=== PATIENT | male | born 1955 | race Caucasian/White ===

== ENCOUNTER 2022-03-14 16:42 | Inpatient (IN) | payer MEDICARE, OTHER ==
[~2022-03-14] VITALS: Ht 190.5 cm; Wt 93.9 kg
--- NOTE | 2022-03-14 16:54 | NUR ---
[facility] C/O PACING, NOT TAKING MEDS, REFUSING TO EAT & DRINK x COUPLE OF DAYS. TO ER BED 14, HOOKED TO MONITOR, CHANGED TO HOSP GOWN, WARM BLANKET PROVIDED. AWAITING MD ESPAÑA
--- NOTE | 2022-03-14 17:27 | NUR ---
HUMBLE BALL: [phone] FOR FIELD SEISMOLOGIST: WALTER DAWIT: [phone]
--- NOTE | 2022-03-14 17:35 | NUR ---
DR MARY AT BEDSIDE
[2022-03-14] MEDS ORDERED: IV NS 0.9% 1,000 ML IV ONE (18:00)
--- NOTE | 2022-03-14 18:23 | NUR ---
BLOOD COLLECTED AND SENT TO LAB
[2022-03-14 18:24] LABS: BASOPHILS % (AUTO) 0.4 % (0.0-2.0); EOSINOPHILS % (AUTO) 0.2 % (0.0-6.0); HEMATOCRIT 44 % (39-51); HEMOGLOBIN 14.8 g/dL (13.5-17.5); LYMPHOCYTES # (AUTO) 0.9 K/uL (0.8-4.8); LYMPHOCYTES % (AUTO) 11.6 % (20.0-44.0); MEAN CORPUSCULAR HGB CONC 34 g/dl (31.0-36.0); MEAN CORPUSCULAR VOLUME 81 fL (80-96); MONOCYTES # (AUTO) 0.8 K/uL (0.1-1.30); MONOCYTES % (AUTO) 9.7 % (2.0-12.0); NEUTROPHILS # (AUTO) 6.3 K/uL (1.8-8.9); NEUTROPHILS % (AUTO) 78.1 % (43.0-81.0); PLATELET COUNT (AUTO) 162 K/uL (150-450); RED BLOOD CELL COUNT(AUTO) 5.35 MIL/uL (4.5-6.0); WHITE BLOOD COUNT (AUTO) 8.1 K/uL (4.3-11.0)
[2022-03-14 18:47] LABS: ALANINE AMINOTRANSFERASE 46 U/L (12-78); ALBUMIN 3.7 g/dL (3.4-5.0); ALKALINE PHOSPHATASE 131 U/L (46-116); ASPARTATE AMINOTRANSFERASE 60 U/L (15-37); BILIRUBIN,DIRECT 0.5 mg/dL (0.0-0.2); BILIRUBIN,TOTAL 1.2 mg/dL (0.2-1.0); CALCIUM, SERUM 9.1 mg/dL (8.5-10.1); CARBON DIOXIDE 18 mmol/L (21-32); CHLORIDE 105 mmol/L (98-107); CREATININE 1.8 mg/dL (0.6-1.3); GLUCOSE 89 mg/dL (74-106); POTASSIUM 3.5 mmol/L (3.5-5.1); SODIUM SERUM 140 mmol/L (136-145); TOTAL PROTEIN, SERUM 7.1 g/dL (6.4-8.2); UREA NITROGEN, BLOOD 37 mg/dL (7-18)
[2022-03-14 18:49] LABS: ACETAMINOPHEN 0 ug/ml (10-30)
[2022-03-14 18:50] LABS: ALCOHOL, BLOOD < 3 mg/dL (0-0)
--- NOTE | 2022-03-14 19:11 | NUR ---
EDE AT BEDSIDE.
--- NOTE | 2022-03-14 19:17 | NUR ---
COVID SWAB COLLECTED AND SENT TO LAB
[2022-03-14 21:09] LABS: BILIRUBIN,URINE NEGATIVE (NEGATIVE); COLOR,URINE YELLOW (YELLOW); LEUKOCYTE ESTERASE ,URINE NEGATIVE (NEGATIVE); NITRITE, URINE NEGATIVE (NEGATIVE); PROTEIN,URINE NEGATIVE (NEGATIVE); UGLUCOSE NEGATIVE (NEGATIVE); UROBILINOGEN,URINE 0.2 EU/dL (0.2)
--- NOTE | 2022-03-14 22:37 | NUR ---
REPORT GIVEN TO LUCY
--- NOTE | 2022-03-14 22:43 | NUR ---
PATIENT TRANSFERRED VSS
[2022-03-14 22:48] VITALS: BP 154/86
--- NOTE | 2022-03-14 22:48 | NUR ---
MS RN ADMITTING NOTES PT ARRIVED TO VIA GURNEY BY ER STAFF, ABLE TO WALK TO BED. A/O X4, ABLE TO MAKE NEEDS KNOWN. STABLE ON RA WITH NO S/S OF RESPIRATORY DISTRESS. DENIES PAIN AT THIS TIME. VS: 154/86 BP, 75 HR, 20 RR, 98.6 F, 98% O2, 207 LB. PT ABLE TO ANSWER ADMISSION QUESTIONS. STATES TO HAVE SUICIDAL THOUGHTS AT TIMES BUT NOT AT THE MOMENT. FOR PSYCH CONSULT. SKIN ASSESSMENT PERFORMED AND DOCUMENTED IN CHART: SKIN INTACT, NOTED WITH SOME SCABS AND TOE REDNESS/SWELLING. IV ACCESS LAC #20G SL, PATENT AND INTACT. ORIENTED TO UNIT AND HOW TO USE CALL LIGHT. REFUSES ANY WATER OR SNACKS AT THIS TIME. SAFETY PRECAUTIONS PUT IN PLACE: BED LOCKED AND IN LOW POSITION, SIDE RAILS UP X2, CALL LIGHT AND TRAY TABLE WITHIN REACH. WILL CONTINUE TO MONITOR AND ASSIST.
[2022-03-14] MEDS ORDERED: ACETAMINOPHEN 325 MG TABLET PO PRN (23:00)
[2022-03-14] MEDS ORDERED: ONDANSETRON HCL/PF 4 MG/2 ML VIAL IVP PRN (23:00)
[2022-03-14] MEDS ORDERED: MAGNESIUM HYDROXIDE 30 ML UDC PO PRN (23:00)
[2022-03-14] MEDS ORDERED: IV NS 0.9% 1,000 ML IV PRN (23:00)
[2022-03-14] MEDS ORDERED: Z GUARD REMEDY 4 OZ OINT TP PRN (23:00)
[2022-03-14] MEDS ORDERED: ZOLPIDEM TARTRATE 5 MG TABLET PO PRN (23:00)
[2022-03-14] MEDS ORDERED: MAG HYDROX/AL HYDROX/SIMETH 30 ML UDC PO PRN (23:00)
[2022-03-15 05:49] LABS: BASOPHILS % (AUTO) 0.4 % (0.0-2.0); EOSINOPHILS % (AUTO) 0.9 % (0.0-6.0); HEMATOCRIT 42 % (39-51); HEMOGLOBIN 13.9 g/dL (13.5-17.5); LYMPHOCYTES # (AUTO) 1.3 K/uL (0.8-4.8); LYMPHOCYTES % (AUTO) 21.8 % (20.0-44.0); MEAN CORPUSCULAR HGB CONC 33 g/dl (31.0-36.0); MEAN CORPUSCULAR VOLUME 84 fL (80-96); MONOCYTES # (AUTO) 0.9 K/uL (0.1-1.30); MONOCYTES % (AUTO) 14.5 % (2.0-12.0); NEUTROPHILS # (AUTO) 3.8 K/uL (1.8-8.9); NEUTROPHILS % (AUTO) 62.4 % (43.0-81.0); PLATELET COUNT (AUTO) 119 K/uL (150-450); RED BLOOD CELL COUNT(AUTO) 5.04 MIL/uL (4.5-6.0)
[2022-03-15 06:10] LABS: CALCIUM, SERUM 8.3 mg/dL (8.5-10.1); CREATININE 1.2 mg/dL (0.6-1.3); MAGNESIUM 2.5 mg/dL (1.8-2.4); PHOSPHORUS 2.8 mg/dL (2.5-4.9); POTASSIUM 3.2 mmol/L (3.5-5.1)
[2022-03-15 06:11] LABS: THYROID STIMULATING HORMONE 1.053 uIU/mL (0.358-3.74)
--- NOTE | 2022-03-15 07:08 | NUR ---
MS RN OPENING NOTES RECEIVED PATIENT SLEEPING IN BED, A/Ox4, ABLE TO MAKE NEEDS KNOWN. ON ROOM AIR. NO S/S OF RESPIRATORY DISTRESS OR DISCOMFORT. PATIENT IV ACCESS L AC #20G RUNNING NS @75ML/HR. INTACT AND PATENT. NO S/S OF INFILTRATION. PATIENT AMBULATORY, HAS BATHROOM PRIVILEGE. SKIN INTACT. SAFETY MEASURES IN PLACE: BED LOCKED AND IN LOWEST POSITION, SIDE RAILS UP x2, HOB ELEVATED, CALL LIGHT WITHIN REACH. WILL CONTINUE TO MONITOR.
--- NOTE | 2022-03-15 07:33 | NUR ---
MS RN CLOSING NOTES PT IN BED SLEEPING AT THIS TIME. A/O X4, ABLE TO MAKE NEEDS KNOWN. STABLE ON RA WITH NO S/S OF RESPIRATORY DISTRESS. DENIES PAIN AT THIS TIME. IV ACCESS LAC #20G SL, PATENT AND INTACT, RUNNING 0.9% NS @ 75 ML/HR. ALL CARE PROVIDED. SAFETY PRECAUTIONS MAINTAINED: BED LOCKED AND IN LOW POSITION, SIDE RAILS UP X2, CALL LIGHT AND TRAY TABLE WITHIN REACH. WILL ENDORSE JAMIR TO DAY SHIFT NURSE.
[2022-03-15 08:00] VITALS: BP 107/61
[2022-03-15] MEDS ORDERED: ALLO100T PO (08:12)
[2022-03-15] MEDS ORDERED: ALBU8.5H8 IH (08:12)
[2022-03-15] MEDS ORDERED: BENZ1TAB7 PO (08:12)
[2022-03-15] MEDS ORDERED: BUPR-319 PO (08:12)
[2022-03-15] MEDS ORDERED: AMLO-213 PO (08:12)
[2022-03-15] MEDS ORDERED: TRAZ150T75 PO (08:12)
[2022-03-15] MEDS ORDERED: CHLO473M2 MM (08:12)
[2022-03-15] MEDS ORDERED: ARIP5TAB59 PO (08:12)
[2022-03-15] MEDS ORDERED: CHOL100043 PO (08:12)
[2022-03-15] MEDS ORDERED: ATOR40TA PO (08:12)
[2022-03-15] MEDS: BENZTROPINE MESYLATE (1 MG) 1 MG TABLET PO SCH ×2 (09:00→16:02)
--- NOTE | 2022-03-15 09:15 | NUR ---
RN NOTES PATIENT TOLD ABOUT HIS MEDICATION, NODDED WHEN TOLD WHAT THE MEDICATION WAS. CUT THE MEDICATION BENZTROPINE FOR ORDERED DOSE 0.5 MG. WHEN GIVEN TO PATIENT TO TAKE PATIENT BEGAN TO SHAKE HIS HEAD AND WHEN ASKED IF HE WANTED TO TAKE THE PILL SHOOK HIS HEAD NO. LEFT PATIENT, ATTEMPTED TO TRY AGAIN TO GIVE PATIENT THE MEDICATION BUT WAS GIVEN A HEAD SHAKE NO AGAIN. MEDICATION WASTED IN THE RX DESTROYER.
[2022-03-15] MEDS ORDERED: POTASSIUM CHLORIDE 20 MEQ TAB.PRT.SR PO SCH (10:30)
--- NOTE | 2022-03-15 10:31 | NUR ---
RN NOTES ASKED PATIENT IF HE WOULD TAKE HIS POTASSIUM SUPPLEMENTS, HE NODDED. GOT MEDICATION, PATIENT TOOK PILLS WHOLE AND SPOKE SOFTLY SAYING YES IF HE WANTED FOOD. CHOCOLATE PUDDING GIVEN, WILL CONTINUE TO MONITOR.
--- NOTE | 2022-03-15 11:00 | NUR ---
RN NOTES PATIENT SEEN BY DR. EVITA MD RECOMMEND TRANSFER TO [facility] WILL AWAIT NEW ORDERS.
--- NOTE | 2022-03-15 14:59 | NUR ---
RN NOTES CRISIS TEAM SAW PATIENT, PENDING TRANSFER TO [facility] BED 220A.
[2022-03-15 16:00] VITALS: BP 140/75
[2022-03-15] MEDS ORDERED: ZOLP5TAB8 PO (17:13)
[2022-03-15] MEDS ORDERED: ALLA266C2 TP (17:13)
[2022-03-15] MEDS ORDERED: MAGN400O6 PO (17:13)
[2022-03-15] MEDS ORDERED: MAG30ORA PO (17:13)
[2022-03-15] MEDS ORDERED: ACET-868 PO (17:13)
--- NOTE | 2022-03-15 17:59 | NUR ---
PLASTER AND STUCCO WORKER NOTES PATIENT BEING D/C TO [facility] UNIT. STABLE, A/Ox4 ABLE TO MAKE NEEDS KNOWN. STABLE ON ROOM AIR, NO S/S OF RESPIRATORY DISTRESS. PATIENT AMBULATORY, ABLE TO GO TO THE BATHROOM. CONTINENT. SKIN INTACT, L TOE REDNESS NOTED. IV ACCESS REMOVED, PRESSURE DRESSING APPLIED, NO BLEEDING NOTED. ID BAND REMOVED. LEFT UNIT @1650, ACCOMPANIED BY LUI DUBON AND MIKE STEELE VIA WHEELCHAIR. REPORT GIVEN TO MIKE BOWIE. CHARGE NURSE AND MD AWARE OF DISCHARGE.
== END 2022-03-15 16:49 | DRG 640 ==
LOC: ER 16:51 → EDBD 16:51 → MED 21:59
PROVIDERS: ADMIT Nurse Practitioner Acute Care; ATTEND Nurse Practitioner Family
DX: R62.7 Adult failure to thrive (principal); G93.41 Metabolic encephalopathy; N17.0 Acute kidney failure with tubular necrosis; F32.A Depression, unspecified; Z79.51 Long term (current) use of inhaled steroids; Z79.899 Other long term (current) drug therapy; Z87.891 Personal history of nicotine dependence; E87.6 Hypokalemia; E83.41 Hypermagnesemia; F25.1 Schizoaffective disorder, depressive type; F29 Unspecified psychosis not due to a substance or known physiological condition; R41.9 Unspecified symptoms and signs involving cognitive functions and awareness; F94.0 Selective mutism; G24.01 Drug induced subacute dyskinesia
CPT/HCPCS: 36415; 70450-TC; 71045-TC; 80048-TC; 80061-TC; 80076-TC; 83735-TC; 84100-TC; 84443-TC; 85025-TC; 87081-TC; 97112-TC; 97116-TC; 97530-TC; C9803; G0378; G0480; J7030

== ENCOUNTER 2022-03-15 16:56 | Inpatient (IN) | payer MEDICARE, OTHER ==
[~2022-03-15] VITALS: Ht 190.5 cm; Wt 95.3 kg
[~2022-03-15 16:56] MED LIST: ALBU8.5H8 IH; ALLO100T PO; AMLO-213 PO; ARIP5TAB59 PO; ATOR40TA PO; BENZ1TAB7 PO; BUPR-319 PO; CHLO473M2 MM; CHOL100043 PO; TRAZ150T75 PO
[2022-03-15] MEDS ORDERED: ZOLP5TAB8 PO (17:13)
[2022-03-15] MEDS ORDERED: MAGN400O6 PO (17:13)
[2022-03-15] MEDS ORDERED: ALLA266C2 TP (17:13)
[2022-03-15] MEDS ORDERED: MAG30ORA PO (17:13)
[2022-03-15] MEDS ORDERED: ACET-868 PO (17:13)
[2022-03-15] MEDS ORDERED: MAGNESIUM HYDROXIDE 30 ML UDC PO PRN ×2 (17:30→19:30)
[2022-03-15] MEDS ORDERED: TEMAZEPAM 7.5 MG CAPSULE PO PRN (17:30)
[2022-03-15] MEDS ORDERED: MAG HYDROX/AL HYDROX/SIMETH 30 ML UDC PO PRN ×2 (17:30→19:30)
[2022-03-15] MEDS ORDERED: ACETAMINOPHEN 325 MG TABLET PO PRN ×2 (17:30→19:30)
--- NOTE | 2022-03-15 18:30 | NUR ---
RN-CO: Admitted a 66 year old male from medical floor. He was placed on a 72 hour hold for being a Gravely Disabled Adult. Dr Ward gave the admitting orders while Dr Bowling was notified to reconcile his medications. Upon face to face interview with the patient , I had a hard time asking him questions because he refused to talk, however the RN from MS said he is alert and oriented x 3-4. His affect is blunted,he is on " position" he nods when he want to answer questions but he ignored most of the questions asked. He nodded when I asked him if he feels suicidal but did not response when I asked him if he has plan to commit suicide. Per report from the RN he feels hopeless because he does not have support system. I placed him to the room closest to the nursing station for close observation. He refused MRSA test and body check , I took most of the information from the primary nurse in the medical floor. Patient's rights booklet was given to him and I encouraged him to call for assistance and to ventilate his feelings.
[2022-03-15] MEDS ORDERED: ALBUTEROL FS 2.5 MG/0.5 ML VIAL.NEB NEB PRN (19:30)
[2022-03-15] MEDS: CHLORHEXIDINE GLUCONATE 15 ML UDC MM SCH (20:27)
[2022-03-15 21:17] VITALS: BP 110/60
[2022-03-16 08:00] VITALS: BP 110/59
[2022-03-16] MEDS: AMLODIPINE BESYLATE 10 MG TABLET PO SCH (08:46)
[2022-03-16] MEDS: CHLORHEXIDINE GLUCONATE 15 ML UDC MM SCH ×2 (08:46→21:00)
[2022-03-16] MEDS: ALLOPURINOL 100 MG TABLET PO SCH (08:46)
[2022-03-16 09:09] LABS: ALBUMIN 2.8 g/dL (3.4-5.0); BILIRUBIN,TOTAL 0.7 mg/dL (0.2-1.0); CALCIUM, SERUM 8.2 mg/dL (8.5-10.1); CREATININE 1.2 mg/dL (0.6-1.3); POTASSIUM 3.4 mmol/L (3.5-5.1); TOTAL PROTEIN, SERUM 5.7 g/dL (6.4-8.2)
[2022-03-16] MEDS ORDERED: POTASSIUM CHLORIDE 20 MEQ TAB.PRT.SR PO ONE (12:30)
[2022-03-16] MEDS: ARIPIPRAZOLE 5 MG TABLET PO SCH ×2 (12:34→18:39)
--- NOTE | 2022-03-16 14:22 | NUR ---
LÓPEZ Clinical Note: Pt placed on a 5150 hold for GD. Pt was brought to the hospital due to failure to thrive. Pt currently resides at a independent living located at [address] [place] [address]; ([phone]). Pt does not have any supportive contact at this time. LÓPEZ will contact [facility] van owner operator Mary ([phone]) to see if pt is welcomed back.
--- NOTE | 2022-03-16 14:22 | NUR ---
LÓPEZ Initial Discharge Note: Pt currently resides at a independent living located at [address] [place] [address]; ([phone]). Pt does not have any supportive contact at this time. LÓPEZ will contact [facility] owner operator Mary ([phone]) to see if pt is welcomed back. LÓPEZ will work with the MD and pt to help coordinate appropriate discharge.
--- NOTE | 2022-03-16 14:22 | NUR ---
Treatment Plan: Pt refused to sign treatment plan and walked away from this telegraphic typewriter repairer.
--- NOTE | 2022-03-16 14:24 | NUR ---
Facility Contact: SW contacted Mary ([phone]) landlord to discuss if pt is welcomed back or not. Mary stated that pt has been with them for the past 7 years. She shared that pt has these episodes of depression and usually it happens during October - January but occurred early on this year. She expressed that pt is welcomed back upon discharge, however, doctor recommends possible nursing facility.
[2022-03-16 16:00] VITALS: BP 126/72
[2022-03-16] MEDS: ATORVASTATIN 40 MG TABLET PO SCH (18:39)
[2022-03-16 19:46] VITALS: BP 101/63
--- NOTE | 2022-03-16 21:29 | NUR ---
RN NOTE PATIENT REFUSED SCHEDULED CHLORHEXIDINE 15ML PO FOR TONIGHT. EXPLAINED RISKS/BENEFITS. PT CONTINUED TO REFUSE.
--- NOTE | 2022-03-17 07:31 | NUR ---
[facility] RN OPENING NOTE RECEIVED PT AWAKE AND PACING AROUND THE UNIT. PT IS A/O X2-3, SELECTIVE MUTE. NO AGGRESSIVE BEHAVIOR NOTED. PT IS ON ROOM AIR, TOLERATING WELL. NO SOB NOTED. NOT IN ANY SIGN OF RESPIRATORY DISTRESS. SAFETY MEASURES IN PLACE IN HIS ROOM: BED IN LOWEST AND LOCKED POSITION, SIDE RAILS UPX2, BED ALARM ON, AND CALL LIGHT WITHIN REACH. WILL CONTINUE TO MONITOR THIS PATIENT Q15 MINUTES WITH THE HELP OF STAFF TO MAINTAIN SAFETY.
[2022-03-17 08:00] VITALS: BP 116/85
[2022-03-17] MEDS: ARIPIPRAZOLE 5 MG TABLET PO SCH ×3 (08:32→17:11)
[2022-03-17] MEDS: AMLODIPINE BESYLATE 10 MG TABLET PO SCH (08:32)
[2022-03-17] MEDS: ALLOPURINOL 100 MG TABLET PO SCH (08:32)
[2022-03-17] MEDS: CHLORHEXIDINE GLUCONATE 15 ML UDC MM SCH ×2 (08:32→21:31)
--- NOTE | 2022-03-17 10:16 | NUR ---
LÓPEZ Note: SW received a call from pt's manager of case management Dinora ([phone]) who wanted updates on pt to share with his outpatient doctor.
[2022-03-17] MEDS: LORAZEPAM 0.5 MG TABLET PO PRN (11:47)
--- NOTE | 2022-03-17 11:57 | NUR ---
[facility] RN NOTE PT NOTED WITH EPISODES OF ANXIOUSNESS AND PACING BACK AND FORTH IN THE UNIT SINCE MORNING. OFFERED ATIVAN 0.5MG PO ORDERED PRN Q6HRS TO HELP WITH ANXIETY BUT PT REFUSED. EXPLAINED RISK AND BENEFITS, STILL REFUSED. ATIVAN NOT ADMINISTERED AND WAS WASTED. WASTED WAS WITNESSED BY MIKE CHILD CHARGED NURSE.
[2022-03-17 16:00] VITALS: BP 135/54
[2022-03-17] MEDS: ATORVASTATIN 40 MG TABLET PO SCH ×2 (17:11→17:16)
--- NOTE | 2022-03-17 17:19 | NUR ---
[facility]PS RN NOTE PT REFUSED HIS ABILIFY MEDICATION SCHEDULED AT 1700 AND LIPITOR MEDICATION SCHEDULED AT 1800. PT AGREED TO TAKE MEDICATIONS AT FIRST BUT WHEN ABOUT TO GIVE MEDICATIONS, PT REFUSED. EXPLAINED THE RISK AND BENEFITSX3, PT STILL REFUSED.
[2022-03-18 08:00] VITALS: BP 154/72
[2022-03-18] MEDS: CHLORHEXIDINE GLUCONATE 15 ML UDC MM SCH ×2 (08:13→21:20)
[2022-03-18] MEDS: ARIPIPRAZOLE 5 MG TABLET PO SCH ×2 (08:13→16:19)
[2022-03-18] MEDS: ALLOPURINOL 100 MG TABLET PO SCH (08:14)
[2022-03-18] MEDS: AMLODIPINE BESYLATE 10 MG TABLET PO SCH (08:14)
--- NOTE | 2022-03-18 08:14 | NUR ---
SNF Referral: SW sent clinicals to [facility] to Faviola jones ([phone]) for placement. SW sent H & P, progress notes, and medication list.
--- NOTE | 2022-03-18 10:01 | NUR ---
SNF Contact: SW received a call from [facility] to Faviola jones ([phone]) who stated pt is accepted.
[2022-03-18] MEDS: DIVALPROEX SODIUM 125 MG CAP.SPRINK PO SCH ×2 (13:18→16:19)
[2022-03-18 16:00] VITALS: BP 115/88
[2022-03-18] MEDS: ATORVASTATIN 40 MG TABLET PO SCH (17:00)
--- NOTE | 2022-03-18 19:51 | NUR ---
RN NOTES: PATIENT SLEEP IN BED COMFORTABLY, AROUSABLE TO VERBAL STIMULI, BED IN LOW POSITION CALL LIGHTS WITHIN REACH, NO COMPLAIN OF PAIN AND DISCOMFORT AT THIS TIME, ON ROOM AIR SATURATING, NO BEHAVIORAL, PATIENT KEPT CLEAN AND DRY ALL NEEDS MET, WILL CONTINUE TO MONITOR.
[2022-03-18 20:00] VITALS: BP 104/60
[2022-03-19] MEDS: LORAZEPAM 0.5 MG TABLET PO PRN (08:16)
--- NOTE | 2022-03-19 08:18 | NUR ---
RN-NOTES NOTED PATIENT PACING IN THE HALLWAY,GUARDED FOCUS ON LEAVING TODAY. REDIRECTED AND ATIVAN 0.5MG P.O GIVEN PRN ORDER. WILL CONT. MONITORING FOR SAFETY AND BEHAVIOR.
[2022-03-19] MEDS: DIVALPROEX SODIUM 125 MG CAP.SPRINK PO SCH ×3 (08:42→16:29)
[2022-03-19] MEDS: CHLORHEXIDINE GLUCONATE 15 ML UDC MM SCH ×2 (08:42→21:17)
[2022-03-19] MEDS: ARIPIPRAZOLE 5 MG TABLET PO SCH ×2 (08:43→16:29)
[2022-03-19] MEDS: ALLOPURINOL 100 MG TABLET PO SCH (08:43)
[2022-03-19] MEDS: AMLODIPINE BESYLATE 10 MG TABLET PO SCH (09:00)
--- NOTE | 2022-03-19 09:20 | NUR ---
RN-NOTES PATIENT IN THE ROOM SITTING IN BED CALM,NO ACUTE DISTRESS NOTED.
--- NOTE | 2022-03-19 09:50 | NUR ---
Court Notification: Pt does not have any supportive contact to notify of 5250 hearing.
--- NOTE | 2022-03-19 09:50 | NUR ---
Court Notification: Pt's court for 5250 was today and it was upheld for GD.
[2022-03-19 10:01] VITALS: BP 100/70
[2022-03-19 12:30] LABS: CREATININE 1.6 mg/dL (0.6-1.3); POTASSIUM 3.7 mmol/L (3.5-5.1)
[2022-03-19 16:00] VITALS: BP 124/69
[2022-03-19] MEDS: ATORVASTATIN 40 MG TABLET PO SCH (17:05)
--- NOTE | 2022-03-19 17:28 | NUR ---
RN-NOTES PATIENT VISIBLE IN THE UNIT PACING ON AND OFF,GUARDED, NO ACUTE DISTRESS NOTED.COMPLIANT WITH MEDICATIONS. COOPERATIVE WITH STAFF.ALL NEEDS ATTENDED AND ANTICIPATED. WILL CONT.MONITORING FOR SAFETY AND BEHAVIOR. WILL ENDORSE TO INCOMING NURSE FOR THE CONTINUITY OF CARE.
[2022-03-19 20:00] VITALS: BP 129/74
--- NOTE | 2022-03-19 20:19 | NUR ---
RN NOTES: PATIENT WALKING AROUND THE UNIT . IN NO APPARENT DISTRESS NOTED. PATIENT REMAINS , DISORGANIZED, PARANOID ,DISHELVED , EASILY AGITATED TALKING TO SELF , FOCUS ON DISCHARGE ,NEEDS FREQUENTLY REDIRECTIONS SAFETY PRECAUTIONS MAINTAINED. WILL CONTINUE TO MONITOR Q15MIN ROUNDS FOR SAFETY AND BEHAVIOR.
[2022-03-20 08:00] VITALS: BP 143/94
[2022-03-20] MEDS: CHLORHEXIDINE GLUCONATE 15 ML UDC MM SCH ×3 (09:00→21:10)
[2022-03-20] MEDS: DIVALPROEX SODIUM 125 MG CAP.SPRINK PO SCH ×3 (09:17→18:16)
[2022-03-20] MEDS: ARIPIPRAZOLE 5 MG TABLET PO SCH ×2 (09:17→18:16)
[2022-03-20] MEDS: ALLOPURINOL 100 MG TABLET PO SCH (09:17)
[2022-03-20] MEDS: AMLODIPINE BESYLATE 10 MG TABLET PO SCH (09:18)
[2022-03-20] MEDS: risperiDONE 1 MG TABLET PO SCH ×2 (11:00→21:04)
[2022-03-20 16:00] VITALS: BP 149/87
[2022-03-20] MEDS: ATORVASTATIN 40 MG TABLET PO SCH (18:15)
[2022-03-20 20:00] VITALS: BP 132/70
--- NOTE | 2022-03-20 20:11 | NUR ---
RN NOTES: PATIENT RESTING HIS ROOM . IN NO APPARENT DISTRESS NOTED. PATIENT REMAINS , DISORGANIZED, GUARDED, PARANOID ,DISHELVED , EASILY AGITATED TALKING TO SELF , FOCUS ON DISCHARGE ,NEEDS FREQUENTLY REDIRECTIONS SAFETY PRECAUTIONS MAINTAINED. WILL CONTINUE TO MONITOR Q15MIN ROUNDS FOR SAFETY AND BEHAVIOR.
--- NOTE | 2022-03-20 20:12 | NUR ---
RN NOTES: PATIENT WALKING AROUND THE UNIT . IN NO APPARENT DISTRESS NOTED. PATIENT REMAINS , DISORGANIZED, GUARDED, PARANOID ,DISHELVED , EASILY AGITATED TALKING TO SELF , FOCUS ON DISCHARGE ,NEEDS FREQUENTLY REDIRECTIONS SAFETY PRECAUTIONS MAINTAINED. WILL CONTINUE TO MONITOR Q15MIN ROUNDS FOR SAFETY AND BEHAVIOR.
[2022-03-20] MEDS ORDERED: risperiDONE 1 MG TABLET PO SCH (21:00)
[2022-03-21 08:00] VITALS: BP 152/77
[2022-03-21] MEDS: AMLODIPINE BESYLATE 10 MG TABLET PO SCH (08:29)
[2022-03-21] MEDS: DIVALPROEX SODIUM 125 MG CAP.SPRINK PO SCH ×3 (08:29→16:21)
[2022-03-21] MEDS: ALLOPURINOL 100 MG TABLET PO SCH (08:30)
[2022-03-21] MEDS: risperiDONE 1 MG TABLET PO SCH ×2 (08:30→21:40)
[2022-03-21] MEDS: CHLORHEXIDINE GLUCONATE 15 ML UDC MM SCH ×2 (09:00→21:40)
[2022-03-21] MEDS: ARIPIPRAZOLE 5 MG TABLET PO SCH ×2 (10:57→16:21)
[2022-03-21 16:00] VITALS: BP 136/77
[2022-03-21] MEDS: ATORVASTATIN 40 MG TABLET PO SCH (17:41)
--- NOTE | 2022-03-21 19:30 | NUR ---
PS RN NOTE, RECEIVED PATIENT AWAKE AND IN BED, NO S/S OR COMPLAINTS OF PAIN AT THIS TIME. PATIENT IS DISPLAYING NO S/S OF APPARENT DISTRESS AT THIS TIME. PATIENT BREATHING IS UNLABORED WITH EQUAL RISE AND FALL OF THE CHEST. PATIENT IS ALERT AND ORIENTED X 3 ON ROOM AIR WITH A SPO2 97%. PATIENT IS COMPLIANT WITH MEDICATIONS, CALM, GUARDED, SELECTIVELY MUTE, AND COOPERATIVE. PATIENT DENIES SUICIDAL AND HOMICIDAL IDEATIONS AT THIS TIME. PATIENT ASSISTED WITH TURNING AND REPOSITIONING Q2HR AND PRN FOR COMFORT AND CIRCULATION. PATIENT HAS NO NEEDS AT THIS TIME. PATIENT EDUCATED ON THE USE OF THE CALL FITZPATRICK. PATIENT BED SIDE RAILS UP X 2 FOR SAFETY. PATIENT BED IS LOCKED AND LOW. WILL CONTINUE TO MONITOR THIS PATIENT Q15 MINUTES WITH THE HELP OF STAFF TO MAINTAIN SAFETY.
[2022-03-22 08:00] VITALS: BP 134/95
[2022-03-22] MEDS: risperiDONE 1 MG TABLET PO SCH ×2 (08:35→20:56)
[2022-03-22] MEDS: ARIPIPRAZOLE 5 MG TABLET PO SCH ×2 (08:35→16:57)
[2022-03-22] MEDS: DIVALPROEX SODIUM 125 MG CAP.SPRINK PO SCH ×3 (08:35→16:57)
[2022-03-22] MEDS: AMLODIPINE BESYLATE 10 MG TABLET PO SCH (08:36)
[2022-03-22] MEDS: ALLOPURINOL 100 MG TABLET PO SCH (08:36)
[2022-03-22] MEDS: CHLORHEXIDINE GLUCONATE 15 ML UDC MM SCH ×2 (09:00→20:56)
[2022-03-22 16:00] VITALS: BP 105/64
[2022-03-22] MEDS: ATORVASTATIN 40 MG TABLET PO SCH (16:57)
[2022-03-22 20:00] VITALS: BP 133/89
[2022-03-22 23:04] LABS: CALCIUM, SERUM 8.4 mg/dL (8.5-10.1); CREATININE 1.2 mg/dL (0.6-1.3)
[2022-03-23] MEDS ORDERED: POTASSIUM CHLORIDE 20 MEQ TAB.PRT.SR PO ONE (00:30)
--- NOTE | 2022-03-23 04:45 | NUR ---
RN CLOSING NOTES: ALERT AND ORX2 DISHEVELED APPEARANCE WITH AN ODOR TOOK MEDICATIONS W/0 A PROBLEM AFTER BEING AWAKENED STAYED IN HIS ROOM 12 HOURS IN BED ALWAYS APPEARED TO BE ASLEEP WHEN ROUND MADE NOTED K+ LEVEL 3.0 FROM 3.7 TEXT THE SENIOR NET ARCHITECT MONIE AND WAS INSTRUCTED TO GIVE 2- MEQ K+ ONCE PATIENT GOOD ABOUT THE LARGE PILL AND TOOK IT WITHOUT A PROBLEM
[2022-03-23 08:00] VITALS: BP 150/90
[2022-03-23] MEDS: CHLORHEXIDINE GLUCONATE 15 ML UDC MM SCH ×2 (09:54→21:27)
[2022-03-23] MEDS: ARIPIPRAZOLE 5 MG TABLET PO SCH ×2 (09:55→17:05)
[2022-03-23] MEDS: ALLOPURINOL 100 MG TABLET PO SCH (09:56)
[2022-03-23] MEDS: DIVALPROEX SODIUM 125 MG CAP.SPRINK PO SCH ×3 (09:56→17:05)
[2022-03-23] MEDS: risperiDONE 1 MG TABLET PO SCH ×2 (09:57→21:09)
[2022-03-23] MEDS: AMLODIPINE BESYLATE 10 MG TABLET PO SCH (09:57)
[2022-03-23 16:00] VITALS: BP 142/84
[2022-03-23] MEDS: ATORVASTATIN 40 MG TABLET PO SCH (17:58)
[2022-03-23 21:19] VITALS: BP 123/69
[2022-03-24 08:00] VITALS: BP 138/98
[2022-03-24] MEDS: CHLORHEXIDINE GLUCONATE 15 ML UDC MM SCH ×2 (09:28→21:01)
[2022-03-24] MEDS: AMLODIPINE BESYLATE 10 MG TABLET PO SCH (09:28)
[2022-03-24] MEDS: DIVALPROEX SODIUM 125 MG CAP.SPRINK PO SCH ×3 (09:28→16:56)
[2022-03-24] MEDS: ARIPIPRAZOLE 5 MG TABLET PO SCH (09:28)
[2022-03-24] MEDS: risperiDONE 1 MG TABLET PO SCH ×2 (09:28→21:01)
[2022-03-24] MEDS: ALLOPURINOL 100 MG TABLET PO SCH (09:36)
[2022-03-24 16:00] VITALS: BP 111/80
--- NOTE | 2022-03-24 17:50 | NUR ---
RN-NOTES PATIENT VISIBLE IN THE UNIT STAYS IN THE ROOM MOST OF THE TIME THIS SHIFT,ABLE TO MAKE NEEDS KNOWN TO THE STAFF. NO ACUTE DISTRESS NOTED.COMPLIANT WITH MEDICATIONS. DENIES SI/HI DURING FACE TO FACE ASSESSMENT.COOPERATIVE WITH STAFF.ALL NEEDS ATTENDED AND ANTICIPATED. WILL CONT.MONITORING FOR SAFETY AND BEHAVIOR. WILL ENDORSE TO INCOMING NURSE FOR THE CONTINUITY OF CARE.
[2022-03-24] MEDS: ATORVASTATIN 40 MG TABLET PO SCH (18:09)
[2022-03-24 21:00] VITALS: BP 104/53
[2022-03-25 08:00] VITALS: BP 105/67
[2022-03-25] MEDS: risperiDONE 1 MG TABLET PO SCH ×3 (08:24→21:12)
[2022-03-25] MEDS: CHLORHEXIDINE GLUCONATE 15 ML UDC MM SCH ×2 (08:24→21:11)
[2022-03-25] MEDS: ALLOPURINOL 100 MG TABLET PO SCH (08:25)
[2022-03-25] MEDS: DIVALPROEX SODIUM 125 MG CAP.SPRINK PO SCH ×3 (08:25→17:23)
[2022-03-25] MEDS: AMLODIPINE BESYLATE 10 MG TABLET PO SCH (08:25)
[2022-03-25] MEDS ORDERED: risperiDONE 1 MG TABLET PO SCH (13:00)
[2022-03-25 16:00] VITALS: BP 125/69
[2022-03-25] MEDS: ATORVASTATIN 40 MG TABLET PO SCH (17:23)
[2022-03-25 21:43] VITALS: BP 112/60
[2022-03-26 08:00] VITALS: BP 132/92
[2022-03-26] MEDS: CHLORHEXIDINE GLUCONATE 15 ML UDC MM SCH ×2 (08:11→20:37)
[2022-03-26] MEDS: ALLOPURINOL 100 MG TABLET PO SCH (08:11)
[2022-03-26] MEDS: DIVALPROEX SODIUM 125 MG CAP.SPRINK PO SCH ×3 (08:11→16:10)
[2022-03-26] MEDS: risperiDONE 1 MG TABLET PO SCH ×3 (08:11→20:37)
[2022-03-26] MEDS: AMLODIPINE BESYLATE 10 MG TABLET PO SCH (08:12)
[2022-03-26 16:00] VITALS: BP 122/59
[2022-03-26] MEDS: BUPROPION XL 150 MG TAB.ER.24 PO SCH (16:10)
[2022-03-26 16:16] LABS: CALCIUM, SERUM 8.4 mg/dL (8.5-10.1); CREATININE 1.3 mg/dL (0.6-1.3); POTASSIUM 3.5 mmol/L (3.5-5.1)
[2022-03-26] MEDS: ATORVASTATIN 40 MG TABLET PO SCH (17:06)
[2022-03-26 20:00] VITALS: BP 127/81
[2022-03-27 08:00] VITALS: BP 124/82
[2022-03-27] MEDS: BUPROPION XL 150 MG TAB.ER.24 PO SCH (08:20)
[2022-03-27] MEDS: CHLORHEXIDINE GLUCONATE 15 ML UDC MM SCH ×2 (08:20→21:07)
[2022-03-27] MEDS: ALLOPURINOL 100 MG TABLET PO SCH (08:20)
[2022-03-27] MEDS: DIVALPROEX SODIUM 125 MG CAP.SPRINK PO SCH ×3 (08:20→16:35)
[2022-03-27] MEDS: risperiDONE 1 MG TABLET PO SCH ×3 (08:21→21:08)
[2022-03-27] MEDS: AMLODIPINE BESYLATE 10 MG TABLET PO SCH (08:22)
[2022-03-27 16:00] VITALS: BP 104/56
[2022-03-27] MEDS: ATORVASTATIN 40 MG TABLET PO SCH (17:05)
[2022-03-27 20:54] VITALS: BP 109/51
[2022-03-28 08:00] VITALS: BP 102/60
[2022-03-28] MEDS: ALLOPURINOL 100 MG TABLET PO SCH (08:13)
[2022-03-28] MEDS: DIVALPROEX SODIUM 125 MG CAP.SPRINK PO SCH ×3 (08:13→16:43)
[2022-03-28] MEDS: risperiDONE 1 MG TABLET PO SCH ×3 (08:13→21:09)
[2022-03-28] MEDS: CHLORHEXIDINE GLUCONATE 15 ML UDC MM SCH ×2 (08:13→21:09)
[2022-03-28] MEDS: AMLODIPINE BESYLATE 10 MG TABLET PO SCH (08:14)
[2022-03-28] MEDS: BUPROPION XL 150 MG TAB.ER.24 PO SCH (08:31)
[2022-03-28 16:00] VITALS: BP 93/60
[2022-03-28] MEDS: ATORVASTATIN 40 MG TABLET PO SCH (17:32)
--- NOTE | 2022-03-28 19:30 | NUR ---
GPS RN NOTE, RECEIVED PATIENT AWAKE AND IN BED, NO S/S OR COMPLAINTS OF PAIN AT THIS TIME. PATIENT IS DISPLAYING NO S/S OF APPARENT DISTRESS AT THIS TIME. PATIENT BREATHING IS UNLABORED WITH EQUAL RISE AND FALL OF THE CHEST. PATIENT IS ALERT AND ORIENTED X 3 ON ROOM AIR WITH A SPO2 96%. PATIENT IS COMPLIANT WITH MEDICATIONS, CALM, GUARDED, SELECTIVELY MUTE, AND COOPERATIVE. PATIENT DENIES SUICIDAL AND HOMICIDAL IDEATIONS AT THIS TIME. PATIENT ASSISTED WITH TURNING AND REPOSITIONING Q2HR AND PRN FOR COMFORT AND CIRCULATION. PATIENT HAS NO NEEDS AT THIS TIME. PATIENT EDUCATED ON THE USE OF THE CALL FITZPATRICK. PATIENT BED SIDE RAILS UP X 2 FOR SAFETY. PATIENT BED IS LOCKED AND LOW. WILL CONTINUE TO MONITOR THIS PATIENT Q15 MINUTES WITH THE HELP OF STAFF TO MAINTAIN SAFETY.
[2022-03-28 20:23] VITALS: BP 112/82
[2022-03-29 08:00] VITALS: BP 123/97
[2022-03-29] MEDS: CHLORHEXIDINE GLUCONATE 15 ML UDC MM SCH ×2 (08:11→21:12)
[2022-03-29] MEDS: DIVALPROEX SODIUM 125 MG CAP.SPRINK PO SCH ×3 (08:12→16:42)
[2022-03-29] MEDS: AMLODIPINE BESYLATE 10 MG TABLET PO SCH (08:12)
[2022-03-29] MEDS: ALLOPURINOL 100 MG TABLET PO SCH (08:12)
[2022-03-29] MEDS: BUPROPION XL 150 MG TAB.ER.24 PO SCH (08:12)
[2022-03-29] MEDS: risperiDONE 1 MG TABLET PO SCH ×3 (08:12→21:12)
--- NOTE | 2022-03-29 12:51 | NUR ---
RN-CO: Patient is calm and cooperative to care. He denied suicidal and homicidal ideation. No aggression noted. He is compliant ith medicaitons. He refused to shower and comb his hair. Disheveled and unkempt, keeps to himslef. I encouraged him to ventilate feelings.
[2022-03-29 16:00] VITALS: BP 102/63
[2022-03-29] MEDS: ATORVASTATIN 40 MG TABLET PO SCH (18:01)
--- NOTE | 2022-03-29 20:00 | NUR ---
RN NOTE PATIENT REFUSED WEEKLY SKIN ASSESSMENT.
[2022-03-29 20:16] VITALS: BP 128/76
[2022-03-30 08:00] VITALS: BP 149/78
[2022-03-30] MEDS: DIVALPROEX SODIUM 125 MG CAP.SPRINK PO SCH ×3 (09:16→17:27)
[2022-03-30] MEDS: CHLORHEXIDINE GLUCONATE 15 ML UDC MM SCH ×2 (09:16→21:17)
[2022-03-30] MEDS: risperiDONE 1 MG TABLET PO SCH ×3 (09:17→21:16)
[2022-03-30] MEDS: AMLODIPINE BESYLATE 10 MG TABLET PO SCH (09:17)
[2022-03-30] MEDS: ALLOPURINOL 100 MG TABLET PO SCH (09:18)
[2022-03-30] MEDS: BUPROPION XL 150 MG TAB.ER.24 PO SCH (09:18)
--- NOTE | 2022-03-30 12:28 | NUR ---
RN-CO: Patient is calm and cooperative to care. He denied suicidal and command hallucinations. No aggression noted. He is compliant with medicaTIONS. He is confused and disorganized. He refused to shower and comb his hair. Refused to take a shower again.
[2022-03-30 16:00] VITALS: BP 112/71
[2022-03-30] MEDS: ATORVASTATIN 40 MG TABLET PO SCH (17:27)
[2022-03-30 19:00] LABS: CALCIUM, SERUM 7.9 mg/dL (8.5-10.1); CREATININE 1.4 mg/dL (0.6-1.3); POTASSIUM 3.3 mmol/L (3.5-5.1)
[2022-03-30 20:14] VITALS: BP 100/55
--- NOTE | 2022-03-30 22:06 | NUR ---
RN NOTE RELAYED TO THE MEDICAL [facility]ENTER ON-CALL DR. MARTINEZ REGARDING POTASSIUM LEVEL OF 3.3 WITH NEW ORDER OF POTASSIUM CHLORIDE 20MEQ PO X1 NOTED AND CARRIED OUT.
[2022-03-30] MEDS ORDERED: POTASSIUM CHLORIDE 20 MEQ TAB.PRT.SR PO ONE (22:30)
[2022-03-31 08:00] VITALS: BP 105/68
[2022-03-31] MEDS: ALLOPURINOL 100 MG TABLET PO SCH (09:39)
[2022-03-31] MEDS: BUPROPION XL 150 MG TAB.ER.24 PO SCH (09:39)
[2022-03-31] MEDS: DIVALPROEX SODIUM 125 MG CAP.SPRINK PO SCH ×3 (09:39→17:01)
[2022-03-31] MEDS: risperiDONE 1 MG TABLET PO SCH ×3 (09:39→21:09)
[2022-03-31] MEDS: AMLODIPINE BESYLATE 10 MG TABLET PO SCH (09:39)
[2022-03-31] MEDS: CHLORHEXIDINE GLUCONATE 15 ML UDC MM SCH ×2 (09:40→21:09)
[2022-03-31 16:00] VITALS: BP 106/53
[2022-03-31] MEDS: ATORVASTATIN 40 MG TABLET PO SCH (17:01)
[2022-03-31 19:49] VITALS: BP 100/58
[2022-04-01 07:12] LABS: BASOPHILS % (AUTO) 0.6 % (0.0-2.0); EOSINOPHILS % (AUTO) 3.2 % (0.0-6.0); HEMATOCRIT 40 % (39-51); HEMOGLOBIN 13.2 g/dL (13.5-17.5); LYMPHOCYTES # (AUTO) 1.8 K/uL (0.8-4.8); LYMPHOCYTES % (AUTO) 31.3 % (20.0-44.0); MEAN CORPUSCULAR HGB CONC 33 g/dl (31.0-36.0); MEAN CORPUSCULAR VOLUME 83 fL (80-96); MONOCYTES # (AUTO) 0.7 K/uL (0.1-1.30); MONOCYTES % (AUTO) 11.8 % (2.0-12.0); NEUTROPHILS # (AUTO) 3.1 K/uL (1.8-8.9); NEUTROPHILS % (AUTO) 53.1 % (43.0-81.0); PLATELET COUNT (AUTO) 141 K/uL (150-450); RED BLOOD CELL COUNT(AUTO) 4.81 MIL/uL (4.5-6.0); WHITE BLOOD COUNT (AUTO) 5.9 K/uL (4.3-11.0)
[2022-04-01 08:00] VITALS: BP 107/73
[2022-04-01 08:07] LABS: ALBUMIN 2.7 g/dL (3.4-5.0); BILIRUBIN,TOTAL 0.4 mg/dL (0.2-1.0); CALCIUM, SERUM 8.1 mg/dL (8.5-10.1); CREATININE 1.4 mg/dL (0.6-1.3); POTASSIUM 3.7 mmol/L (3.5-5.1); TOTAL PROTEIN, SERUM 5.5 g/dL (6.4-8.2)
[2022-04-01] MEDS: BUPROPION XL 150 MG TAB.ER.24 PO SCH (08:55)
[2022-04-01] MEDS: DIVALPROEX SODIUM 125 MG CAP.SPRINK PO SCH ×3 (08:55→16:19)
[2022-04-01] MEDS: risperiDONE 1 MG TABLET PO SCH ×3 (08:55→21:11)
[2022-04-01] MEDS: AMLODIPINE BESYLATE 10 MG TABLET PO SCH (08:55)
[2022-04-01] MEDS: ALLOPURINOL 100 MG TABLET PO SCH (08:55)
[2022-04-01] MEDS: CHLORHEXIDINE GLUCONATE 15 ML UDC MM SCH ×2 (08:56→21:11)
--- NOTE | 2022-04-01 15:45 | NUR ---
SNF Contact: LÓPEZ sent clinicals to [facility] to Aliyah jones ([phone]) for placement. LÓPEZ sent H & P, progress notes, and medication list. Aliyah stated pt is accepted.
--- NOTE | 2022-04-01 15:46 | NUR ---
LÓPEZ Note: SW contacted mental health case manager Dinora ([phone]) accepted at [facility].
[2022-04-01 16:00] VITALS: BP 119/72
[2022-04-01] MEDS: ATORVASTATIN 40 MG TABLET PO SCH (18:19)
[2022-04-01 19:58] VITALS: BP 119/69
[2022-04-02 08:00] VITALS: BP 98/58
--- NOTE | 2022-04-02 08:04 | NUR ---
LÓPEZ Discharge Note: Patient will be discharged to [facility] located at [address] [place] [address]; ([phone]). Please arrange transportation at 1PM. LÓPEZ spoke with Benedict jones ([phone]) who stated that pt is welcomed back today. Patients LPS conservshanae Donaldson ([phone]) will need placement. Patient denies visual/auditory hallucinations. Patient denies suicidal or homicidal ideation. Patient will follow up with (Various Exceptionalities Teacher) Dr. Bowling at [address], [place] [address]; ([phone]) and (Psychiatrist) Dr. Duque [address] [facility] [address], [place] [address]; ([phone]). Patient presented with euthymic mood and congruent affect. Addendum: 04/02/22 at 0806 by LÓPEZ CALVILLO Wrong patient
--- NOTE | 2022-04-02 08:06 | NUR ---
SW Discharge Note: [facility], [place] [address]; ). Please arrange ambulance at 1PM. Circulation Sales Representative spoke with Aliyah Decorative Engraver at [facility]; ([phone]), who stated patient will be accepted today. Pt appears to be alert and oriented x2. Pt denies visual/auditory hallucinations. Pt denies suicidal or homicidal ideation. Patient will continue to follow-up with (Psychiatrist) Dr. Ward [address] [facility] [address], [place] [address]; ([phone]). (Clothing Cutter) Dr. Bowling [address] [facility] [address], [place] [address]; ([phone]).
--- NOTE | 2022-04-02 08:08 | NUR ---
SW Note: Dr. Ward and pt's outpatient doctor have been in contact and have been agreeable of pt discharging to [facility].
[2022-04-02] MEDS: DIVALPROEX SODIUM 125 MG CAP.SPRINK PO SCH ×2 (08:26→12:38)
[2022-04-02] MEDS: CHLORHEXIDINE GLUCONATE 15 ML UDC MM SCH (08:26)
[2022-04-02 08:27] VITALS: BP 98/58
[2022-04-02] MEDS: AMLODIPINE BESYLATE 10 MG TABLET PO SCH (08:27)
[2022-04-02] MEDS: ALLOPURINOL 100 MG TABLET PO SCH (08:27)
[2022-04-02] MEDS: BUPROPION XL 150 MG TAB.ER.24 PO SCH (08:27)
[2022-04-02] MEDS: risperiDONE 1 MG TABLET PO SCH ×2 (08:27→12:38)
--- NOTE | 2022-04-02 11:42 | NUR ---
Dr. Ward gave an order to d/c hold and d/c to [facility], to continue same meds including prn and to follow up with psych and medical doctors. Dr. Fuentes made aware of the discharge and reconciled meds to continue in the facility.
--- NOTE | 2022-04-02 12:55 | NUR ---
RN-DISCHARGE NOTES PATIENT HAD A DISCHARGE ORDER FROM ( PSYCHIATRIST), ( RACK ROOM WORKER) MEDICALLY CLEARED PATIENT FOR DISCHARGE. PATIENT WAS DISCHARGE TO [facility] PATIENT DID NOT VERBALIZE SI/HI,DENIES VISUAL/AUDITORY HALLUCINATIONS AT THE TIME OF DISCHARGE. PATIENT LEFT THE UNIT IN STABLE CONDITION A/O X2 AMBULATORY STEADY GAIT. PATIENT WAS ACCREDITATION COORDINATOR BY AMBULANCE VIA GURNEY WITH TWO STAFF ASSIST. ALL BELONGINGS WAS GIVEN BACK TO THE PATIENT .
== END 2022-04-02 12:55 | DRG 885 ==
LOC: GPS 16:56
PROVIDERS: ADMIT Psychiatry & Neurology Psychosomatic Medicine; ATTEND Internal Medicine
DX: F25.1 Schizoaffective disorder, depressive type (principal); N17.0 Acute kidney failure with tubular necrosis; Z20.822 Contact with and (suspected) exposure to COVID-19; R41.9 Unspecified symptoms and signs involving cognitive functions and awareness; Z87.891 Personal history of nicotine dependence; Z79.51 Long term (current) use of inhaled steroids; Z79.899 Other long term (current) drug therapy; Z73.6 Limitation of activities due to disability; R53.1 Weakness; R27.8 Other lack of coordination; Z91.81 History of falling; I10 Essential (primary) hypertension; F41.9 Anxiety disorder, unspecified; M10.9 Gout, unspecified; E87.6 Hypokalemia; E88.09 Other disorders of plasma-protein metabolism, not elsewhere classified
CPT/HCPCS: 36415; 80048-TC; 80053-TC; 80061-TC; 80164-TC; 85025-TC